=== PATIENT | male | born 1950 | race Caucasian/White ===

== ENCOUNTER → 2016-06-23 | Outpatient (CLI) | payer MEDICARE, OTHER ==
[~2016-06-23] MED LIST: CLON-241 PO; ESCI10TA47 PO; FLUT1DIS32 IH; FLUT9.9S NAS; INDO75CA3 PO; MELA5TAB14 PO; OMEP-122 PO; ZOLP-109 PO
--- NOTE | 2016-06-23 14:23 | DI ---
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 A total of 15.0 mCi of 18 fluorodeoxyglucose were administered. Following the appropriate uptake time period, whole body imaging was performed from the occiput to the upper thighs. Findings: There is normal physiologic activity throughout the brainstem, salivary glands, cardiovascular system, genitourinary tract and GI tract. Head and neck: No abnormal activity seen throughout the neck or axillary regions. There is normal activity in salivary glands, nasopharynx and the base of tongue, less pronounced than on prior study. Chest: No abnormal activity is seen throughout the axillary region, chest wall, mediastinum or lungs. Lungs are clear with no peripheral infiltrate, effusions or developing large pulmonary nodules. There is mild cardiomegaly but no pericardial effusion. Abdomen pelvis: No abnormal activity seen to the visceral organs or periaortic region. Review pelvis shows no evidence of adenopathy along the external iliac chain or inguinal regions. There is prominent hydronephrosis of the left kidney. There is no evidence of bowel distention or visceral mass lesions. Moderate diverticula are scattered throughout the sigmoid. Mesentery is preserved. Bladder is nondistended. There is a subtle ovoid focal area of metabolic activity in the right hip laterally and muscular terminate measuring I 5.3 SUV. Impression: 1. Essentially negative PET scan imaging of the body except for one focal area in the musculature overlying the right hip laterally, nonspecific although worrisome for recurrent melanoma. This shows no corresponding CT focal mass. Targeted sonography may be with mild. 2. Left-sided hydronephrosis. .
== END ==
LOC: IMA 06:39
PROVIDERS: ATTEND Internal Medicine Medical Oncology
DX: C43.59 Malignant melanoma of other part of trunk (principal); C00.4 Malignant neoplasm of lower lip, inner aspect; C02.1 Malignant neoplasm of border of tongue; N13.30 Unspecified hydronephrosis; R93.7 Abnormal findings on diagnostic imaging of other parts of musculoskeletal system
CPT/HCPCS: 78815; A9552